=== PATIENT | female | born 1950 | race Hispanic/Latino ===

== ENCOUNTER 2022-01-18 17:59 | Emergency (ER) | payer OTHER ==
[~2022-01-18] VITALS: Ht 154.9 cm; Wt 72.6 kg
[2022-01-18] MEDS ORDERED: FLUTICASONE PROPIONATE 50MCG/SPRAY 16 GM BOTTLE EN SCH (19:00)
[2022-01-18] MEDS ORDERED: SOLU-MEDROL 125MG VIAL IM ONE (19:00)
[2022-01-18 19:09] VITALS: BP 163/75
[2022-01-18] MEDS ORDERED: LORATADINE 10 MG TABLET ONE (19:17)
[2022-01-19] MEDS ORDERED: LORATADINE 10 MG TABLET PO SCH (09:00)
== END 2022-01-18 19:55 | disposition home or self-care (01) ==
LOC: EDH 17:59
DX: B34.9 Viral infection, unspecified (principal); Z20.822 Contact with and (suspected) exposure to COVID-19; Z90.89 Acquired absence of other organs; Z98.890 Other specified postprocedural states
CPT/HCPCS: 87635 ×2; 87804 ×2; 96372; 99283; C9803; J2930